=== PATIENT | male | born 1955 | race Caucasian/White ===

== ENCOUNTER → 2018-06-27 07:28 | Outpatient (CLI) | payer OTHER, SELFPAY ==
--- NOTE | 2018-06-27 07:33 | ECHOCS_ITS ---
Reason For Study: TIA/HTN Procedure This was a 2D Doppler, Color Flow transthoracic echocardiogram. Exam performed in department. Left Ventricle Mildly dilated left ventricle. The estimated ejection fraction is 55 %. Stage 1 diastolic dysfunction. Septal motion consistent with IVCD. There is mild global hypokinesis of the left ventricle. Right Ventricle Normal size and thickness. Normal systolic function. Atria Normal left atrium. Normal right atrium. Normal atrial septum. Bubble contrast study negative for right to left interatrial shunt. Mitral Valve The mitral valve is structurally normal. No prolapse or stenosis seen. Tricuspid Valve Normal tricuspid valve. Trivial tricuspid valve insufficiency. Right ventricular systolic pressure estimated to be 29 mmHg. Aortic Valve Normal aortic valve. Trisinus/trileaflet aortic valve. Pulmonic Valve Normal pulmonic valve. Great Vessels Normal aortic root. Normal arch. Normal inferior vena cava. Inferior vena cava collapse with sniff. Pericardium/Pleural No pericardial effusion. Medication 22 gauge I.V. with prn adaptor inserted into right arm. Diluted definity 4.5ml given slow IV push to enhance endocardial definition. Performed a rapid injection of agitated mix of 9 cc saline and 1cc air to assess for atrial septal defect. MMode/2D Measurements & Calculations LVIDd: 5.1 cm IVSd: 1.1 cm Ao root diam: 3.2 cm LVIDs: 3.6 cm LVPWd: 1.2 cm RVDd: 3.4 cm FS: 28.7 % LAV(MOD-bp): 35.9 ml LVAd ap4: 33.6 cm2 SV(MOD-sp4): 55.6 ml LAV(MOD-bp) Indexed: 17.2 ml/m2 EDV(MOD-sp4): 111.0 ml LAV(MOD-sp2): 38.0 ml EDV(sp4-el): 115.5 ml LAV(MOD-sp4): 33.8 ml LVAs ap4: 21.9 cm2 ESV(MOD-sp4): 55.4 ml ESV(sp4-el): 56.6 ml EF(MOD-sp4): 50.1 % EF(sp4-el): 51.0 % SV(sp4-el): 58.9 ml LA A4 area: 14.2 cm2 LA dimension(2D): 3.7 cm RA A4 area: 13.4 cm2 Time Measurements MV dec time: 0.18 sec Doppler Measurements & Calculations MV E max aric: 68.0 cm/sec Lat Peak E' Aric: 6.9 cm/sec Med Peak E' Aric: 3.8 cm/sec MV A max aric: 80.3 cm/sec E/E' lat: 9.8 E/E' med: 17.8 MV E/A: 0.85 Ao V2 max: 131.6 cm/sec LV V1 max: 91.4 cm/sec PA V2 max: 120.8 cm/sec Ao max P.9 mmHg LV V1 max P.3 mmHg TR max aric: 245.0 cm/sec TR max P.0 mmHg Interpretation Summary Mildly dilated left ventricle. The estimated ejection fraction is 55 %. Stage 1 diastolic dysfunction. There is mild global hypokinesis of the left ventricle. Trivial tricuspid valve insufficiency. Right ventricular systolic pressure estimated to be 29 mmHg. Bubble contrast study negative for right to left interatrial shunt. Compared to echo report dated 04/01/2011, LV function has mildly improved from 45% to 55%. RVSP has remained the same. Ordering Physician: KARLIE CORONADO Referring Physician: ALFONSO CLARKE Performed By: Mabel Haji RDCS
== END ==
PROVIDERS: Family Provider Family Medicine; PCP Family Medicine
DX: I10 Essential (primary) hypertension (principal); R20.2 Paresthesia of skin; Z86.73 Personal history of transient ischemic attack (TIA), and cerebral infarction without residual deficits
CPT/HCPCS: 93306; Q9957; A4216; C8929

== ENCOUNTER 2022-12-03 19:23 | Emergency (ER) | payer MEDICARE, SELFPAY ==
[2022-12-03] VITALS (7 sets, daily range): BP systolic 96–102; BP diastolic 67–70; PULSE 107–124; RESP 13–24; TEMP 36.7; O2SAT 85–93; BMI 27.8
--- NOTE | 2022-12-03 19:56 | EDS_ITS ---
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 He states he usually wears 4 L of oxygen at home. He admittedly took it off because he has been experiencing constipation and is tired of having to manually disimpact himself of stool. His called EMS. He states that a lthough he has undergone 1 round of chemotherapy, he does not want to have chemotherapy any longer, and wants no further treatment. He states he took off his oxygen because he wanted to . Although he has a DNR CCA order on him, he has been talking to his about hospice and palliative care. He presents to the emergency department not wanting any treatment for his shortness of breath. [facility] Medical History Diabetes Lung cancer Pneumonia Stroke Home Medications aspirin 81 mg chewable tablet 1 tab PO DAILY 12/03/22 [History Last Taken Unknown] atorvastatin 80 mg tablet (Lipitor) 80 mg PO DAILY 12/03/22 [History Last Taken Unknown] carvedilol 3.125 mg tablet (Coreg) 3.125 mg PO DAILY 12/03/22 [History Last Taken Unknown] clopidogrel 75 mg tablet (Plavix) 75 mg PO DAILY 12/03/22 [History Last Taken U nknown] duloxetine 60 mg capsule,delayed release (Cymbalta) 60 mg PO DAILY 12/03/22 [History Last Taken Unknown] ergocalciferol (vitamin D2) 1,250 mcg (50,000 unit) capsule (Drisdol) 1,250 mcg PO QWEEK 12/03/22 [History Last Taken Unknown] furosemide 20 mg tablet (Lasix) 20 mg PO DAILY 12/03/22 [History Last Taken Unknown] insulin aspart U-100 .ROUTE 12/03/22 [History Last Taken Unknown] magnesium 250 mg tablet 250 mg PO DAILY 12/03/22 [History Last Taken Unknown] metformin 500 mg tablet 500 mg PO BID 12/03/22 [History Last Taken Unknown] ondansetron HCl 4 mg tablet 4 mg PO Q8H 12/03/22 [History Last Taken Unknown] pioglitazone 15 mg tablet (Actos) 15 mg PO DAILY 12/03/22 [History Last Taken Unknown] Allergy/AdvReac Type Severity Reaction Status Date / Time No Known Allergies Allergy Verified 12/03/22 19:26 Social History Smoking Status: Former smoker ROS ROS ED ROS Narrative Constitutional: No fever, no chills. HEENT: No sore throat. No neck pain. No loss of vision. No rhinorrhea. Cardiovascular: No chest pain. No palpitations. No pedal edema. Respiratory: No cough, chronic shortness of breath secondary to lung carcinoma. Abdominal: No abdominal pain. No nausea. No vomiting. Of constipation. Genitourinary: No dysuria. No hematuria. Musculoskeletal: No myalgias. No arthralgias. Neurologic: No headaches. No dizziness. No lightheadedness. Skin: No rash. No change in color. Psychiatric: No depression. No anxiety. EXAM Physical Exam Narrative Exam Narrative: Afebrile. Vital signs noted. HEENT: Normocephalic. Atraumatic. PERRL, EOMI. Neck soft and supple. No point tenderness or step off. Cardiovascular: Tachycardia. No murmurs, rubs, or gallops appreciated. Respiratory: No tachypnea. Lungs clear to auscultation bilaterally. Decreased breath sounds right base greater than left. Gastrointestinal: Abdomen soft, nontender, with normoactive bowel sounds. No rebound or guarding. Neurological: Awake. Alert. Nonfocal, nonlateralizing. Skin: No rash. Normal color. No pallor. Musculoskeletal: No pedal edema. Full range of motion extremities. Const Vital Signs: 12/03/22 19:26 12/03/22 19:30 12/03/22 19:32 Temperature 98.1 F Temperature Source Oral Pulse Rate 124 H 123 H Respiratory Rate 18 24 H Respiratory Effort Short of Breath Respiratory Pattern Tachypnea Blood Pressure 102/67 Blood Pressure Mean 78 Pulse Ox 85 85 Oxygen Delivery Method Nasal Cannula Nasal Cannula Oxygen Flow Rate (L/min) 6 6 12/03/22 19:42 12/03/22 20:32 Temperature 98.1 F Temperature Source Temporal Pulse Rate 123 H 114 H Respiratory Rate 24 H 14 Respiratory Effort Respiratory Pattern Blood Pressure 102/67 96/67 Blood Pressure Mean 78 76 Pulse Ox 93 92 Oxygen Delivery Method High Flow High Flow Oxygen Flow Rate (L/min) 10 11 MDM MDM MDM Narrative Medical decision making narrative: In the differential diagnosis would be COPD exacerbation/lung carcinoma, and pulmonary embolism. I reviewed his prior records. His is currently at the bedside and presents a DNR Comfort Care arrest order. I had a lengthy discussion with the patient, and he states that he is agreeable to hospice and palliative care consultation, and even being enrolled in home hospice. He signed the [facility] DNR comfort care only form in front of his , and she confirmed that this is what his wishes are currently. [facility] was contacted. RN ordered EKG was obtained and interpreted by myself independently as sinus tachycardia at 124 bpm without ectopy or acute ST changes. No STEMI. There is a right bundle branch block. This was obtained and interpreted prior to his signing the DNR form. At this point in time, [facility] was contacted. According to his wishes, I will not draw laboratory work or perform other testing. Patient is currently awaiting palliative care/hospice consultation. I entered the DNR status order. At this point in time, he will be signed out to the oncoming physician Dr. Yadiel Yanez to make final disposition whether it be to admit him to hospice versus home hospice and discharge. Patient is in stable condition. Discharge Plan Triage Chief Complaint: Shortness of Breath ED Provider: Drew Cobos Dx/Rx/DC Orders Clinical Impression: DNR (do not resuscitate) discussion, Lung cancer, Encounter for hospice care Prescriptions: No Action furosemide [Lasix] 20 mg tablet 20 mg PO DAILY clopidogrel [Plavix] 75 mg tablet 75 mg PO DAILY carvedilol [Coreg] 3.125 mg tablet 3.125 mg PO DAILY Rx Instructions: must administer with a meal/food atorvastatin [Lipitor] 80 mg tablet 80 mg PO DAILY metformin 500 mg tablet 500 mg PO BID aspirin 81 mg tablet,chewable 1 tab PO DAILY pioglitazone [Actos] 15 mg tablet 15 mg PO DAILY ondansetron HCl 4 mg tablet 4 mg PO Q8H magnesium 250 mg tablet 250 mg PO DAILY duloxetine [Cymbalta] 60 mg capsule,delayed release(DR/EC) 60 mg PO DAILY ergocalciferol (vitamin D2) [Drisdol] 1,250 mcg (50,000 unit) capsule 1,250 mcg PO QWEEK insulin aspart U-100 [Novolog FlexPen U-100 Insulin] .ROUTE Patient Comments: sliding scale Primary Care Provider: Peter Irwin Referrals: Peter Irwin MD [Primary Care Provider] -
--- NOTE | 2022-12-03 20:01 | ED.RN ---
This RN at bedside with Dr Cobos while patient and talk about code status. Dr Cobos explains the difference between DNR cc and DNR CCA. The patient decides he wants to be a DNR CC, patient signs the form. [facility] is being consulted.
[2022-12-04] MEDS: Ondansetron 4 MG/2 ML Vial IV (06:27)
[2022-12-04] MEDS: fentaNYL 100 MCG/2 ML Ampul 50 MCG IV (06:27)
[2022-12-04 08:40] VITALS: BP 108/74; PULSE 122; RESP 16; O2SAT 78
[2022-12-04] MEDS: Morphine 4 MG/ML Syringe IV (08:56)
--- NOTE | 2022-12-04 09:56 | ED.RN ---
Hospice at bedside
--- NOTE | 2022-12-04 10:23 | CM.ED ---
Addendum entered by Valery Angeles 12/04/22 11:57: SW met with patient and patient's family and introduced self and role as [facility] SW. Patient's family agreeable to speak with SW. SW inquired about needs at d/c and provided emotional support. Patient's reports no needs at this time. SW faxed requested documents to [facility], att: Keira Ortega. Plan: [facility] Original Note: Social Work SW received update from Keira Ortega with [facility]; patient to be evaluated by Hospice nurse to transfer to [facility]. Keira Ortega requesting DNRCC, med list, facesheet, d/c instructions at discharge. [facility] to arrange transportation to [facility] if patient is accepted. SW to follow along and assist as needed. Plan: evaluation from Hospice to determine home with Hospice vs [facility] M[facility]ares
--- NOTE | 2022-12-04 11:09 | ED.RN ---
Report given to Hospice nurse
== END 2022-12-04 11:33 | disposition hospice, inpatient (51) ==
PROVIDERS: Emergency Provider Emergency Medicine; PCP Family Medicine; Visit Provider Emergency Medicine
DX: Z51.5 Encounter for palliative care (principal); E11.9 Type 2 diabetes mellitus without complications; Z79.4 Long term (current) use of insulin; Z87.891 Personal history of nicotine dependence; Z85.118 Personal history of other malignant neoplasm of bronchus and lung; Z85.05 Personal history of malignant neoplasm of liver; Z99.81 Dependence on supplemental oxygen; Z92.21 Personal history of antineoplastic chemotherapy; Z86.73 Personal history of transient ischemic attack (TIA), and cerebral infarction without residual deficits; Z79.899 Other long term (current) drug therapy; Z79.82 Long term (current) use of aspirin; Z79.02 Long term (current) use of antithrombotics/antiplatelets; Z79.84 Long term (current) use of oral hypoglycemic drugs
CPT/HCPCS: 93005; 96374; 96375; 99284; A4216; J2405